=== PATIENT | female | born 1950 | race Caucasian/White ===

== ENCOUNTER 2025-03-14 09:13 | Outpatient (REF) | payer MEDICARE, MEDICAID, SELFPAY ==
--- OUTSIDE RECORDS SUMMARY | 2024-08-21 10:00 | XMS_ITS ---
Author Organization [facility] Address [address] [address] Care Team Providers Care Box Stamper Name Role Phone Dinesh WILLINGHAM, Dorota Primary Care Provider Ivanaa Vinny Melgoza Unavailable [phone] REASON FOR VISIT skin tear of L car[place] Encounters Encounter Location Date Provider Diagnosis [facility] [address] [address] 08/21/2024 Vinny Cobos Plan Of Treatment No Information Progress Notes * Trudy WELCHDOB:1950 (74 yo F)Acc No.[id number]:08/21/2024 Returning Patient Visit Patient: Trudy CABRERA Provider: Anai Cobos NP :1950 A ge:74 Y S ex:Female Date:08/21/2024 Address:[address] [place], [place] [phone] Pcp:Dorota Montiel NP Subjective: * Chief Complaints: * 1 . skin tear of L carlisle. * Medical History: Objective: * Vitals: Assessment: Plan: * Treatment: * Billing Information: * Visit Code: * Procedure Codes: * Electronic signature of Mack Cobos NP on 03/14/2025 at 10:56 AM EDT Sign off status: Pending * Provider: Anai Cobos NP Date: 08/21/2024 Generated for Vy charlton/Paresh/eTransmitting on: 0 03/14/2025 10:56 AM EDT
--- NOTE | ~2025-03-14 | US_ITS ---
EXAMINATION: US TRIPLEX LOWER EXTREMITY, RIGHT CLINICAL INFORMATION: Status post vein procedure. COMPARISON: None available. TECHNIQUE: Color-flow triplex imaging with spectral analysis and compression Doppler were performed on the right lower extremity. FINDINGS: Respiratory variation, normal compression and augmented flow are demonstrated in the interrogated common femoral vein, superficial femoral vein, profunda femoral vein, popliteal vein and midcalf peroneal and posterior tibial venous segments. Status post RFA with a 5.1 cm from the saphenous vein junction.. There is no Schmidt's cyst. US/US venous duplex LE RT IMPRESSION: No acute deep venous thrombosis interrogated veins, right lower extremity. Negative for DVT. Electronically signed by: Lang Weber MD 03/14/2025 09:59 AM EDT
--- OUTSIDE RECORDS SUMMARY | 2025-03-14 10:56 | XMS_ITS | Encounter Summary ---
Author Organization [facility], Address [address] [place] [address] Phone Care Team Providers Care Barrel Racer Name Role Phone Dorota Montiel MADDISON Primary Care Provider [phone] Encounter Details Date Type Department Care Team (Late st Contact Info) Description 02/03/2024 Documentation Only [facility] [address] [place] [address] Violeta Tian [address] [place] [phone] Social History Tobacco Use Types Packs/Day Years Used Date Smoking Tobacco: Former Cigarettes Q uit: 2019 Alcohol Use Standard Drinks/Week Comments Yes 0 (1 standard drink = 0.6 oz pur e alcohol) Occasional Comments Unknown Sex and Gender Information Value Date Recorded Sex Assigned at Not on file Legal Sex Female 5:19 PM EST Gender Identity Not on file Sexual Orientation Not on file 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 [address] documented as of this encounter Visit Diagnoses Not on filedocumented in this encounter Care Teams Barrel Racer Relationship Specialty Start Date End Date Dorota Montiel FNP [address] [place] [address] PCP - General Nurse Practitioner 11/14/21 documented as of this encounter
--- OUTSIDE RECORDS SUMMARY | 2025-03-14 10:56 | XMS_ITS | Clinical Summary ---
Author Organization [facility], Address [address] [place] [phone] Phone Care Team Providers Care Tobacco Packing Machine Operator Name Role Phone Dorota Montiel DEPARTMENT CHAIRPERSON Primary Care Provider [phone] Allergies Active Allergy Reactions Criticality Noted Date Comments Codeine Other (see comments) 07/20/2012 Other reaction(s): hallucinations, nausea Hallucinations Lorazepam 07/12/2019 IV Other reaction(s): hallucinations Sulfamethoxazole-Tr imethoprim 05/06/2022 Other reaction(s): nausea/vomiting Medications acetaminophen (TYLENOL) 325 MG tablet Take 650 mg by mouth every 4 (four) hours if needed 07/30/2011 Active apixaban (ELIQUIS) 5 MG tablet Take 1 tablet by mouth in the morning and 1 tablet in the evening. 01/07/2021 Active ascorbic acid (VITAMIN C) 500 MG tablet Take 500 mg by mouth in the morning. Active cevimeline (EVOXAC) 30 MG capsule Take 30 mg by mouth in the morning and 30 mg at noon and 30 mg in the evening. 05/03/2020 Active cholecalciferol (VITAMIN D-3 SUPER STRENGTH) 50 MCG (2000 UT) tablet Take 2,000 Units by mouth Active cyanocobalamin (VITAMIN B-12) 1000 MCG tablet Take 1,000 mcg by mouth in the morning. Active Denosumab 60 MG/ML solution prefilled syringe Inject 60 mg under the skin Active dilTIAZem SR (CARDIZEM SR) 60 MG 12 hr capsule Take 60 mg by mouth in the morning and 60 mg in the evening. 10/25/2020 Active ferrous sulfate 325 (65 Fe) MG tablet Take 1 tablet by mouth in the morning. 11/29/2020 Active gabapentin (NEURONTIN) 300 MG capsule Take 300 mg by mouth in the morning. 08/22/2020 Active gabapentin (NEURONTIN) 100 MG capsule Take 100 mg by mouth in the morning and 100 mg at noon and 100 mg in the evening. 09/10/2021 Active magnesium oxide 250 MG tablet Take by mouth daily Active pantoprazole (PROTONIX) 40 MG EC tablet Take 40 mg by mouth in the morning. 05/03/2020 Active predniSONE 5 MG tablet Take 5 mg by mouth in the morning. 08/22/2021 Active albuterol HFA (PROVENTIL HFA;VENTOLIN HFA) 108 (90 Base) MCG/ACT inhaler Inhale 2 puffs 12/22/2021 Active sotalol (BETAPACE) 120 MG tablet Take 1 tablet by mouth 1 (one) time each day 12/15/2021 Active umeclidinium-vi lanterol (Anoro Ellipta) 62.5-25 MCG/INH aerosol powder Inhale 1 puff daily 09/16/2021 Active traMADol (ULTRAM) 50 MG tablet Take 50 mg by mouth if needed 12/13/2021 Active morphine (MSIR) 15 MG tablet Take 15 mg by mouth every 6 (six) hours if needed 03/13/2022 Active lisinopril 20 MG tablet Take 1 tablet (20 mg total) by mouth 1 (one) time each day 30 tablet 11 09/07/2024 6 Active lisinopril 20 MG tablet Take 1 tablet (20 mg total) by mouth 1 (one) time each day 90 tablet 3 01/17/2025 6 Active Active Problems Problem Noted Date Diagnosed Date Presence of systemic lupus erythematosus (SLE) i nhibitor 05/07/2022 Stage 3a chronic kidney disease 01/01/2022 Presence of systemic lupus erythematosus (SLE) i nhibitor 01/01/2022 Anemia 12/29/2021 Cyst of kidney 12/29/2021 Chronic rheumatic myopericarditis 12/29/2021 Hypophosphatemia 08/21/2020 Overview (12/29/2021): Last Assessment & Plan: Low at 0.8 this morning, replete with K-Phos as well as Neutra-Phos -Repeat level on 08/22 Hypokalemia 08/19/2020 Overview (12/29/2021): Last Assessment & Plan: 3.5 this a.m. this morning -DC IVF and follow BMP Hypertension 05/18/2018 Overview (12/29/2021): Last Assessment & Plan: BP well controlled in office today at 130/70. Consistent with her home recordings. Continue medications at current doses. Encourage low sodium, heart healthy diet. Paroxysmal atrial fibrillation 02/26/2018 Overview (12/29/2021): Last Assessment & Plan: We reviewed her normal MCT as described above. In regard to her history of PAF, she is asymptomatic and appropriately anticoagulated. No changes at this time. 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 She will continue on Evoxac at 30 mg 3 times daily as needed. After full discussion of risks and benefits we will start to taper her prednisone giving her 1 mg tablets she will go from 10 mg daily to 9 mg daily for 1 month and then 8 mg daily until our next visit. Hospital Outpatient Visit on 05/23/2019 Component Date Value Ref Range Status C4 05/23/2019 9* 12 - 39 mg/dL Final C3 05/23/2019 70* 81 - 157 mg/dl Final ANTI DSDNA ANTIBODY 05/23/2019 Negative at 1:10 Final Comment: Madhavi Lopez M.D., Director Clinical Immunology Laboratory [id number] Normal: Negative at 1:10 To interpret a negative test for anti-tyonek or double stranded DNA antibodies in a patient suspected of having systemic lupus erythematosus, the following limitation should be noted. Anti-double stranded DNA antibodies are usually detected in SLE patients with active disease, especially in those with active renal disease. Anti-DNA antibodies are usually not detected in SLE patients with spontaneous or drug-induced remissions. TSH 05/23/2019 1.33 0.27 - 4.20 uIU/mL Final C REACTIVE PROTEIN 05/23/2019 2.2 0.0 - 4.0 mg/L Final WBC 05/23/2019 8.30 3.40 - 11.20 K/uL Final RBC 05/23/2019 3.93 3.80 - 4.80 M/uL Final HGB 05/23/2019 11.5* 12.0 - 15.0 g/dL Final HCT 05/23/2019 35.4* 36.0 - 46.0 % Final PLT 05/23/2019 362 130 - 400 K/uL Final MCV 05/23/2019 90.1 79.0 - 98.0 fL Final MCH 05/23/2019 29.3 27.0 - 34.8 pg Final MCHC 05/23/2019 32.5 31.5 - 36.0 g/dL Final RDW 05/23/2019 14.2 10.8 - 14.6 % Final MPV 05/23/2019 10.5 9.4 - 12.4 fl Final NRBC 05/23/2019 0.00 0.00 /100 WBCs Final ABSOLUTE NRBC 05/23/2019 0.00 0.00 K/uL Final DIFF METHOD 05/23/2019 Auto Final NEUTS 05/23/2019 81.6* 45.30 - 77.70 % Final LYMPHS 05/23/2019 9.8* 12.30 - 39.70 % Final MONOS 05/23/2019 7.3 4.10 - 12.80 % Final EOS 05/23/2019 0.1 0 - 7.2 % Final BASOS 05/23/2019 0.2 0 - 2.80 % Final Granulocytes, immature (%) 05/23/2019 1.0* 0.0 - 0.9 % Final ABSOLUTE NEUTS 05/23/2019 6.77 1.40 - 7.70 K/uL Final ABSOLUTE LYMPHS 05/23/2019 0.81 0.60 - 3.20 K/uL Final ABSOLUTE MONOS 05/23/2019 0.61* 0.11 - 0.59 K/uL Final ABSOLUTE EOS 05/23/2019 0.01 0.01 - 0.50 K/uL Final ABSOLUTE BASOS 05/23/2019 0.02 0.00 - 0.08 K/uL Final Granulocytes, immature 05/23/2019 0.08* 0.00 - 0.05 K/uL Final Last Assessment & Plan: Diagnosis of Sjogren's + SSA/ SSB and SLE + SB , + DSNA HX of chronic prednisone use, when tapered to 2 mg daily developed vasculitic rash LE Resolved with pred taper Current dose is 10 mg, will taper by 2.5 mg q 2 weeks , hold at 5 mg Next visit cautious taper to 3 and hold Recent increase in dyspnea, followed by cardiology and pulmonary Echo stable Improved symptoms with inhaler + prednisone taper Maintain close f/u with forest botany instructor and dye range feeder as pred is tapered Repeat labs today to make certain anemia has improved and ESR normalized Repeat ANCA which was equivocal Last Assessment & Plan: Diagnosis of Sjogren's + SSA/ SSB and SLE + SB , + DSNA HX of chronic prednisone use, when tapered to 2 mg daily developed vasculitic rash LE Resolved with pred taper Current dose is 10 mg, will taper by 2.5 mg q 2 weeks , hold at 5 mg Next visit cautious taper to 3 and hold Recent increase in dyspnea, followed by cardiology and pulmonary Echo stable Improved symptoms with inhaler + prednisone taper Maintain close f/u with forest botany instructor and dye range feeder as Repeat labs showed normal CRP and ESR and Repeat ANCA was neg Last Assessment & Plan: Diagnosis of Sjogren's + SSA/ SSB HX of chronic prednisone use, Developed a rash on LE when she tapered to 2 mg daily -resolved with pred taper Current dose pred is 5 mg /daily Pt is hesitant to reduce prednisone further given her current med issues. Will hold at 5 mg until she has had her uterine biopsy Rare supervisor intermediates complications of SS inlclude B cell lymphoma, renal tubular acidosis And ILD Check SPEP, ESR CRP CBC CXR by pulmonology stable UA -followed by uro-log deckman Ventricular tachycardia 07/18/2012 Overview (12/29/2021): Ventricular tachycardia - 2004 Last Assessment & Plan: Patient denies concerning palpitations or symptoms suggestive of recurrent VT. Continue daily sotalol. Encounters Date Type Department Care Team Description 01/17/2025 Refill [facility], - [address] [place] [phone] Salvador Pina MD from Last 3 Months Immunizations Immunization Administration Dates Next Due Influenza Split High Dose Pr eservative Free IM 04/08/2021,04/05/2020,03/31/2019,03/16,04/09/2017,04/07/2016 Influenza, Quadrivalent, Pre servative Free 04/03/2015 Pfizer SARS-COV-2 11/02/2020,10/12/2020 Pneumococcal Conjugate 13-Valent 07/27/2016 Pneumococcal Polysaccharide 06/04/2015 Shingrix 05/31/2020, 0,01/09/2020,01/07 Tdap 05/18/2012 Family History Medical History Relation Comments Heart disease Father Colon polyps Mother Heart disease Mother Hypertension Mother Relation Status Comments Father Mother Social History Tobacco Use Types Packs/Day Years [...] 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 [phone] Health Maintenance Due Date Last Done Comments Breast Cancer Screening 1950 Colorectal Cancer Screening: Annual FOBT 1999 Colorectal Cancer Screening: Colonoscopy 1999 Colorectal Cancer Screening: Sigmoidoscopy 1999 Pneumococcal Vaccine: 50+ Years (3 of 3 - PCV20 or PCV21) 06/04/2020 07/27/2016, 06/04/2015 Influenza Vaccine (#1) 2025 , 04/05/2020, 03/31/2019, Additional history exists Pneumococcal Vaccine: Peds (0 to 5 Years) and At-Risk Patients (6 to 49 Years) Discontinued 07/27/2016, 06/04/2015 Hepatitis B Vaccine Aged Out No longe r eligible based on patient's age to complete this topic Insurance Medicare Medicaid [place] Care Teams Tobacco Packing Machine Operator Relationship Specialty Start Date End Date Dorota Montiel FNP [address] [place] [address] PCP - General Nurse Practitioner 11/14/21
--- OUTSIDE RECORDS SUMMARY | 2025-03-14 10:56 | XMS_ITS | Encounter Summary ---
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 [address] documented as of this encounter Visit Diagnoses Not on filedocumented in this encounter Care Teams Senior Software Quality Engineer Relationship Specialty Start Date End Date Dorota Montiel FNP [address] [place] [address] PCP - General Nurse Practitioner 11/14/21 documented as of this encounter
--- OUTSIDE RECORDS SUMMARY | 2025-03-14 10:56 | XMS_ITS | Encounter Summary ---
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 [address] documented as of this encounter Visit Diagnoses Not on filedocumented in this encounter Care Teams Photo Graphics Librarian Relationship Specialty Start Date End Date Dorota Montiel FNP [address] [place] [address] PCP - General Nurse Practitioner 11/14/21 documented as of this encounter
--- OUTSIDE RECORDS SUMMARY | 2025-03-14 10:56 | XMS_ITS | Encounter Summary ---
Author Organization [facility], Address [address] [place] [address] Phone Care Team Providers Care Building Construction Inspector Name Role Phone Dorota Montiel MADDISON Primary Care Provider [phone] Encounter Details Date Type Department Care Team (Late st Contact Info) Description 09/04/2024 Documentation Only [facility] [address] [place] [address] Araceli Nick [address] [place] [phone] Social History Tobacco Use Types Packs/Day [...] Job Start Date Job End Date 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 [address] documented as of this encounter Visit Diagnoses Not on filedocumented in this encounter Care Teams Building Construction Inspector Relationship Specialty Start Date End Date Dorota Montiel FNP [address] [place] [address] PCP - General Nurse Practitioner 11/14/21 documented as of this encounter
--- OUTSIDE RECORDS SUMMARY | 2025-03-14 10:56 | XMS_ITS | Encounter Summary ---
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 [address] documented as of this encounter Visit Diagnoses Not on filedocumented in this encounter Care Teams Yeast Tender Relationship Specialty Start Date End Date Dorota Montiel FNP [address] [place] [address] PCP - General Nurse Practitioner 11/14/21 documented as of this encounter
--- OUTSIDE RECORDS SUMMARY | 2025-03-14 10:57 | XMS_ITS | Encounter Summary ---
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 [address] documented as of this encounter Visit Diagnoses Not on filedocumented in this encounter Care Teams Therapeutic Recreation Director Relationship Specialty Start Date End Date Dorota Montiel FNP [address] [place] [address] PCP - General Nurse Practitioner 11/14/21 documented as of this encounter
--- OUTSIDE RECORDS SUMMARY | 2025-03-14 10:57 | XMS_ITS | Encounter Summary ---
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 [address] documented as of this encounter Visit Diagnoses Not on filedocumented in this encounter Care Teams Transport Tank Technician Relationship Specialty Start Date End Date Dorota Montiel FNP [address] [place] [address] PCP - General Nurse Practitioner 11/14/21 documented as of this encounter
--- OUTSIDE RECORDS SUMMARY | 2025-03-14 10:57 | XMS_ITS | Encounter Summary ---
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 [address] documented as of this encounter Visit Diagnoses Not on filedocumented in this encounter Care Teams Child Welfare Assistant Relationship Specialty Start Date End Date Dorota Montiel FNP [address] [place] [address] PCP - General Nurse Practitioner 11/14/21 documented as of this encounter
--- OUTSIDE RECORDS SUMMARY | 2025-03-14 10:57 | XMS_ITS | Encounter Summary ---
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 [address] documented as of this encounter Visit Diagnoses Not on filedocumented in this encounter Care Teams Certified Lactation Educator Relationship Specialty Start Date End Date Dorota Montiel FNP [address] [place] [address] PCP - General Nurse Practitioner 11/14/21 documented as of this encounter
--- OUTSIDE RECORDS SUMMARY | 2025-03-14 10:57 | XMS_ITS | Encounter Summary ---
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 [address] documented as of this encounter Visit Diagnoses Not on filedocumented in this encounter Care Teams Escalation Engineer Relationship Specialty Start Date End Date Dorota Montiel FNP [address] [place] [address] PCP - General Nurse Practitioner 11/14/21 documented as of this encounter
--- OUTSIDE RECORDS SUMMARY | 2025-03-14 10:57 | XMS_ITS | Encounter Summary ---
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 [address] documented as of this encounter Visit Diagnoses Not on filedocumented in this encounter Care Teams Order Administrator Relationship Specialty Start Date End Date Dorota Montiel FNP [address] [place] [address] PCP - General Nurse Practitioner 11/14/21 documented as of this encounter
--- OUTSIDE RECORDS SUMMARY | 2025-03-14 10:57 | XMS_ITS | Encounter Summary ---
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 [address] documented as of this encounter Visit Diagnoses Not on filedocumented in this encounter Care Teams Gas Pumper Relationship Specialty Start Date End Date Dorota Montiel FNP [address] [place] [address] PCP - General Nurse Practitioner 11/14/21 documented as of this encounter
--- OUTSIDE RECORDS SUMMARY | 2025-03-14 10:57 | XMS_ITS | Encounter Summary ---
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 [address] documented as of this encounter Visit Diagnoses Not on filedocumented in this encounter Care Teams All Around Presser Relationship Specialty Start Date End Date Dorota Montiel FNP [address] [place] [address] PCP - General Nurse Practitioner 11/14/21 documented as of this encounter
--- OUTSIDE RECORDS SUMMARY | 2025-03-14 10:57 | XMS_ITS | Encounter Summary ---
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 [address] documented as of this encounter Visit Diagnoses Not on filedocumented in this encounter Care Teams Straddle Buggy Operator Relationship Specialty Start Date End Date Dorota Montiel FNP [address] [place] [address] PCP - General Nurse Practitioner 11/14/21 documented as of this encounter
--- OUTSIDE RECORDS SUMMARY | 2025-03-14 10:57 | XMS_ITS | Encounter Summary ---
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 [address] documented as of this encounter Visit Diagnoses Not on filedocumented in this encounter Care Teams Gem Stone Cutter Relationship Specialty Start Date End Date Dorota Montiel FNP [address] [place] [address] PCP - General Nurse Practitioner 11/14/21 documented as of this encounter
--- OUTSIDE RECORDS SUMMARY | 2025-03-14 10:57 | XMS_ITS | Encounter Summary ---
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 [address] documented as of this encounter Visit Diagnoses Not on filedocumented in this encounter Care Teams Giant Tire Repairer Relationship Specialty Start Date End Date Dorota Montiel FNP [address] [place] [address] PCP - General Nurse Practitioner 11/14/21 documented as of this encounter
--- OUTSIDE RECORDS SUMMARY | 2025-03-14 10:57 | XMS_ITS | Encounter Summary ---
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 [address] [place] [address] Salvador Pina MD [address] [place] [address] [place] [address] documented as of this encounter Visit Diagnoses Not on filedocumented in this encounter Care Teams Head Well Puller Relationship Specialty Start Date End Date Dorota Montiel FNP [address] [place] [address] PCP - General Nurse Practitioner 11/14/21 documented as of this encounter
--- OUTSIDE RECORDS SUMMARY | 2025-03-14 10:57 | XMS_ITS | Encounter Summary ---
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 [address] documented as of this encounter Visit Diagnoses Not on filedocumented in this encounter Care Teams Service Establishment Attendant Relationship Specialty Start Date End Date Dorota Montiel FNP [address] [place] [address] PCP - General Nurse Practitioner 11/14/21 documented as of this encounter
--- OUTSIDE RECORDS SUMMARY | 2025-03-14 10:57 | XMS_ITS | Encounter Summary ---
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 [address] documented as of this encounter Visit Diagnoses Not on filedocumented in this encounter Care Teams Building Official Relationship Specialty Start Date End Date Dorota Montiel FNP [address] [place] [address] PCP - General Nurse Practitioner 11/14/21 documented as of this encounter
--- OUTSIDE RECORDS SUMMARY | 2025-03-14 10:57 | XMS_ITS | Patient Health Record ---
Author Organization [facility] Address [address] [facility] [address] [place] [address] Care Team Providers Care Italian Teacher Name Role Phone Dinesh WILLINGHAM, Dorota Primary Care Provider Vinny Palomo Unavailable [phone] Allergies Allergen (clinical drug ingredient) Drug/Non Drug Allergy documented on EMR Reaction Allergy Type Onset Date Status lorazepam Ativan Unknown Drug Allergy Active sulfamethoxazole / trimethoprim Bactrim Unknown Drug Allergy Active amlodipine Amlodipine Unknown Drug Allergy Activ e azathioprine Azathioprine Unknown Drug Allergy A ctive Medicinal cephalosporin and acting as antibacterial agent (FN) Cephalosporins Unknown Drug Allergy A ctive codeine Codeine Unknown Drug Allergy Active methotrexate Methotrexate Unknown Drug Allergy A ctive Reason For Referral No Information Medications Medication SIG (Take, Route, Frequency, Duration) Notes Start Date End Date Status Lidocaine 5 % 1 patch remove after 12 hours Externally Once a day Active Anoro Ellipta 62.5-25 MCG/ACT 1 puff Inh alation Once a day Active Lisinopril 40 MG 1 tablet Orally Once a day Active B12 5000 MCG as directed Sublingual Active Gabapentin 300 MG 1 capsule Orally Onc e a day Active Hydroxychloroquine Sulfate 200 MG as directed Orally Active Albuterol Sulfate 108 (90 Base) MCG/ACT 1 puff as needed Inhalation every 4 hrs Active Ondansetron 4 MG 1 tablet on the tong ue and allow to dissolve Orally Once a day Active predniSONE 1 MG 2 tablets with food or milk Orally Once a day Active Loperamide HCl 2 MG 1 capsule as needed Orally Four times a day Active Magnesium Active cloNIDine HCl 0.1 MG 1 tablet Orally Onc e a day Active dilTIAZem HCl 60 MG as directed Orally Active Cevimeline HCl 30 MG 1 capsule Orally Th ree times a day Active Estradiol 0.1 MG/GM as directed Vaginal Active Fluticasone Propionate 50 MCG/ACT 1 spray in each nostril Nasally Twice a day Active Eliquis 5 MG as directed Orally Active Esomeprazole Magnesium 40 MG 1 capsule 1 /2 to 1 hour before morning meal Orally Once a day Active traMADol HCl 50 MG 1 tablet as needed Orally Once a day Active Vitamin C 500 MG as directed Orally Active Prolia 60 MG/ML as directed Subcutaneous Active Sotalol HCl 120 MG 1 tablet Orally ever y 12 hrs Active Vitamin D2 Active Problems Problem Type SNOMED Code ICD Code Onset Dates Problem Status W/U Status Risk Notes Problem Essential hypertension (14761861) Essential (primary) hypertension (I10) Active confirmed Problem Cerebrovascular accident (607024868) Cerebrovascular accident (CVA), unspecified mechanism (I63.9) Active confirmed Problem Peripheral arterial disease (372849498) Peripheral arterial disease (I73.9) Active confirmed Problem Neuropathy (859566117) Neuropathy (G62.9) Active confirmed Problem Hypercoagulable state (24170020) Hypercoagulable state (D68.59) Active confirmed Problem Chronic kidney disease stage 3 (disorder) (660886518) Chronic kidney disease, stage 3 (N18.30) Active confirmed Problem Gastroesophageal reflux disease (571348523) GERD (gastroesophageal reflux disease) (K21.9) Active confirmed Problem Atrial fibrillation (25281201) Atrial fibrillation (I48.91) Active confirmed Problem Spinal stenosis (91463159) Spinal stenosis (M48.00) Active confirmed Problem Anemia (444061917) Anemia (D64.9) Active confir med Problem Aortic regurgitation (63562888) Aortic regurgitation (I35.1) Active confirmed Problem Osteoporosis (70438204) Osteoporosis (M81.0) Active confirmed Problem Bronchiectasis (31894177) Bronchiectasis (J47.9) Active confirmed Encounters Encounter Location Date Provider Diagnosis [facility] [address] [place] [address] 08/14/2024 Vinny Cobos Plan Of Treatment No Information Insurance Providers Payer Name Payer Address Payer Phone Subscriber Number Group Number Insured Name Patient Relationship to Insured Coverage Start Date Coverage End Date Medicare [address] [place], [place] [id number] Trudy Lopes Self - patient is the insured [address] [place] [address] (Medicaid) [address] [place], [place] [id number] Trudy Lopes Self - patient is the insured 4 Medical (General) History Medical History History ICD Code Peripheral arterial disease I73.9 Hypercoagulable state D68.59 Elevated white blood cell count, unspeci fied D72.829 Cobalamin deficiency E53.8 Muscle weakness M62.81 Ventricular tachycardia, unspecified I47 .20 Anemia D64.9 Disease of pancreas, unspecified K86.9 Cerebrovascular accident (CVA), unspecif ied mechanism I63.9 Sepsis due to Escherichia coli [E. 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
--- OUTSIDE RECORDS SUMMARY | 2025-03-14 10:57 | XMS_ITS | Encounter Summary ---
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 [address] documented as of this encounter Visit Diagnoses Not on filedocumented in this encounter Care Teams Adult Health Clinical Nurse Specialist Relationship Specialty Start Date End Date Dorota Montiel FNP [address] [place] [address] PCP - General Nurse Practitioner 11/14/21 documented as of this encounter
--- OUTSIDE RECORDS SUMMARY | 2025-03-14 10:57 | XMS_ITS | Encounter Summary ---
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 [address] documented as of this encounter Visit Diagnoses Not on filedocumented in this encounter Care Teams World Designer Relationship Specialty Start Date End Date Dorota Montiel FNP [address] [place] [address] PCP - General Nurse Practitioner 11/14/21 documented as of this encounter
--- OUTSIDE RECORDS SUMMARY | 2025-03-14 10:57 | XMS_ITS | Encounter Summary ---
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 [address] documented as of this encounter Visit Diagnoses Not on filedocumented in this encounter Care Teams Diabetes Physician Relationship Specialty Start Date End Date Dorota Montiel FNP [address] [place] [address] PCP - General Nurse Practitioner 11/14/21 documented as of this encounter
--- OUTSIDE RECORDS SUMMARY | 2025-03-14 10:58 | XMS_ITS | Encounter Summary ---
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 [address] documented as of this encounter Visit Diagnoses Not on filedocumented in this encounter Care Teams Executive Director Of Marketing Relationship Specialty Start Date End Date Dorota Montiel FNP [address] [place] [address] PCP - General Nurse Practitioner 11/14/21 documented as of this encounter
--- OUTSIDE RECORDS SUMMARY | 2025-03-14 10:58 | XMS_ITS | Encounter Summary ---
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 [address] documented as of this encounter Visit Diagnoses Not on filedocumented in this encounter Care Teams Retail Gift Card Merchandising Relationship Specialty Start Date End Date Dorota Montiel FNP [address] [place] [address] PCP - General Nurse Practitioner 11/14/21 documented as of this encounter
== END 2025-03-14 09:14 | disposition home or self-care (01) ==
LOC: HO.US 09:13
PROVIDERS: PCP Internal Medicine; Visit Provider Student in an Organized Health Care Education/Training Program
DX: Z86.718 Personal history of other venous thrombosis and embolism (principal)
CPT/HCPCS: 93971

== ENCOUNTER → 2025-03-14 09:15 | Outpatient (BNV) | payer MEDICARE, MEDICAID, SELFPAY | PROVIDERS: PCP Internal Medicine; Visit Provider Radiology Diagnostic Radiology | DX: Z86.718 Personal history of other venous thrombosis and embolism (principal) | CPT/HCPCS: 93971 ==